=== PATIENT | female | born 1995 | race African-American/Black ===

== ENCOUNTER 2016-10-25 15:11 | Emergency (ER) | payer OTHER ==
[2016-10-25 15:28] VITALS: BP 121/75; PULSE 102; TEMP 98; BMI 23.1
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
[2016-10-25] MEDS ORDERED: ACETAMINOPHEN 325 MG TABLET (FP) ONE (17:34)
[2016-10-25] MEDS: ACETAMINOPHEN 325 MG TABLET (FP) PO ONE (17:35)
== END 2016-10-25 17:38 | disposition home or self-care (01) ==
LOC: JERFT 15:11
DX: M54.6 Pain in thoracic spine (principal); V43.62XA Car passenger injured in collision with other type car in traffic accident, initial encounter; Y92.414 Local residential or business street as the place of occurrence of the external cause; Y93.89 Activity, other specified; Y99.8 Other external cause status
CPT/HCPCS: 84703; 99281-25

== ENCOUNTER 2017-06-12 05:15 | Inpatient (IN) | payer OTHER ==
[2017-06-12 06:36] VITALS: BMI 24.9
[2017-06-12] MEDS ORDERED: DEXTROSE 5%-LACTATED RINGERS 1,000 ML IV SCH ×2 (06:45→09:15)
[2017-06-12] MEDS ORDERED: AMPICILLIN - 2 GM/100 ML BAG IVPB ONE (07:00)
[2017-06-12] MEDS: AMPICILLIN - 1 GM/100 ML BAG IVPB SCH ×4 (07:39→14:40)
[2017-06-12 08:42] LABS: BASOPHIL 0.4 % (0-2.0); EOSINOPHIL 0.7 % (0-4.5); MCH 29.8 pg (25.7-33.7); MCHC 34.1 g/dl (32.0-36.0); MEAN CELL VOLUME 87.5 fl (80-96); MEAN PLT VOLUME 7.2 fl (7.5-11.1); NEUTROPHILS 69.4 % (42.8-82.8); PLATELET COUNT 250 K/MM3 (134-434); RDW 12.8 % (11.6-15.6); WHITE BLOOD COUNT 5.3 K/mm3 (4.0-10.0)
[2017-06-12 08:58] LABS: INR 0.99 (0.82-1.09); PROTHROMBIN TIME (PATIENT) 11.2 SEC (9.98-11.88)
[2017-06-12 09:00] LABS: ACTIVATED PTT 23.7 SECONDS (26.9-34.4)
--- NOTE | 2017-06-12 09:15 | HP ---
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: Alzheimer's, CVA, Dementia, Migraine, Multiple Sclerosis, Peripheral Neuropathy, Parkinson's, Seizure, Syncope, TIA, Vertigo, Other Cardiovascular: No: AFIB, Aneurysm, Aortic Insufficiency, Aortic Stenosis, CAD, CHF, Deep Vein Thrombosis, HTN, Hyperlipdemia, ME, Mitral Insufficiency, Mitral Stenosis, Murmur, Pulmonary Hypertension, Other Pulmonary: No: Asthma, Bronchitis, Cancer, COPD, O2 Dependent, Pneumonia, Previously Intubated, Pulmonary Embolus, Pulmonary Fibrosis, Sleep Apnea, Other Gastrointestinal: No: Ascites, Cancer, Constipation, Crohn's Disease, Diverticulitis, Diverticulosis, Esophageal Varices, Gastritis, GERD, GI Bleed, Hemorrhoids, Hiatal Hernia, Inflamatory Bowel Disease, Irritable Bowel Disease, Pancreatitis, Peptic Ulcer Disease, Ulcerative Colitis, Other Hepatobiliary: No: Cirrhosis, Cholelithiasis, Cholecystitis, Choledocholithiasis , Hepatitis A, Hepatitis B, Hepatitis C, Other Renal/: No: Renal Failure, Renal Inusuff, BPH, Cancer, Hematuria, Hemodialysis , Neurogenic Bladder, Renal Calculi, UTI, Other Reproductive: No: Ectopic , Endometriosis, Fibroids, PID, Polycystic Ovary Syndrome, Postmenopausal, Other ...: 2 ...Para: 1 ...Term: 1 ...EDC by Sono: 06/25/17 Heme/Onc: Yes: Anemia Infectious Disease: No: AIDS, C-Diff, Herpes Zoster, HIV, MRSA, STD's, Tuberculosis, VREF, Other Psych: No: Addictions, Anxiety, Bipolar, Depression, Panic, Psychosis, Schizophrenia, Other Musculoskeletal: No: Bursitis, Chronic low back pain, Hemiparesis, Hemiplegia, Osteoarthritis, Paraplegia, Other Rheumatology: No: Fibromyalgia, Gout, Lupus, Rheumatoid Arthritis, Sarcoidosis, Vasculitis, Other ENT: No: Allergic Rhinitis, Sinusitis, Other Endocrine: No: Lj's Disease, [place]'s Disease, Diabetes Insipidus, Diabetes Mellitus, Hyperparathyroidism, Hyperthyroidism, Hypothyroidism, Osteopenia, SIADH, Other Dermatology: No: Basal Cell, Cellulitis, Eczema, Melanoma, Psoriasis, Squamous Cell, Other - Past Surgical History Past Surgical History: Yes: None Hx Myomectomy: No Hx Transabdominal Cerclage: No - Smoking History Smoking history: Never smoked Have you smoked in the past 12 months: No Aproximately how many cigarettes per day: 0 - Alcohol/Substance Use Hx Alcohol Use: No History of Substance Use: reports: None - Social History Usual Living Arrangement: Yes: With Child ADL: Independent History of Recent Travel: No Home Medications - Allergies Allergies/Adverse Reactions: Allergies Allergy/AdvReac Type Severity Reaction Status Date / Time No Known Allergies Allergy Verified 05/05/17 16:01 - Home Medications Home Medications: Ambulatory Orders Vit/Iron Fumarate/FA [ Tablet] 1 tab PO DAILY 05/05/17 Family Disease History - Family Disease History Family History: Denies Review of Systems - Review of Systems Constitutional: reports: No Symptoms, Other (occasional irreg ctx's) Eyes: reports: No Symptoms HENT: reports: No Symptoms Neck: reports: No Symptoms Cardiovascular: reports: No Symptoms Respiratory: reports: No Symptoms Gastrointestinal: reports: No Symptoms Genitourinary: reports: Other (leaking clear fluids) Breasts: reports: No Symptoms Reported Musculoskeletal: reports: No Symptoms Integumentary: reports: No Symptoms Neurological: reports: No Symptoms Endocrine: reports: No Symptoms Hematology/Lymphatic: reports: No Symptoms Psychiatric: reports: No Symptoms Pain Intensity: 2 Physical Exam - Maternity Vital Signs: Vital Signs Temperature 98.9 F 06/12/17 08:00 Pulse Rate 86 06/12/17 08:00 Respiratory Rate 20 06/12/17 08:00 Blood Pressure 100/64 06/12/17 08:00 O2 Sat by Pulse Oximetry (%) Constitutional: Yes: Well Nourished, No Distress, Calm Eyes: Yes: WNL, Conjunctiva Clear, EOM Intact HENT: Yes: WNL, Atraumatic, Normocephalic Neck: Yes: WNL, Supple, Trachea Midline Cardiovascular: Yes: WNL, Regular Rate and Rhythm Lungs: Clear to auscultation, Normal air movement - Abdominal Exam/OB Fundal Height: 38 Number of Fetuses: Single Presentation: Vertex Contractions: Yes Regularity: Irregular Intensity: Mild Monitor Mode: External Heart Rate (range): 140 Heart Rate Location: Midline Category: I Accelerations: Non-Uniform Decelerations: None - Vaginal Exam/OB Vaginal Bleediing: No Speculum Exam: No Dilatation (cm): 1 Effacement (%): 20 Amniotic Membrane Status: Leaking Nitrazine Test: Positive Amniotic Fluid: Yes: Clear Presentation: Vertex/Position Station: -4 (Adequate gynecoid pelvimetry) - Physical Exam Musculoskeletal: Yes: WNL Extremities: Yes: WNL Edema: No Integumentary: Yes: WNL Deep Tendon Reflex Grade: Normal +2 ...Motor Strength: WNL Psychiatric: Yes: WNL, Alert, Oriented - Labs Lab Results: CBC, BMP 06/12/17 08:06 Hemorrhage Risk Assessment - Risk Factors Medium Risk Factors: Yes: None High Risk Factors: Yes: None Risk Score: 1 Risk Level: Medium Risk Imaging - Results Ultrasound: Report Reviewed Assessment/Plan 22yo P1 with at EGA 38w2d admitted with SROM in early labor. Pt with Category I tracing. Labor is in latent phase. Adequate gynecoid pelvimetry. EFW ~3200gm on exam. Pt with prior h/o shoulder dystocia. I had a long discussion with the pt re: risks of shoulder dystocia and possible /maternal risks of injury. I explained that it is impossible to predict and the only way to attempt to avoid the dystocia is a delivery. The pt declined C/S. I explained the risks of neurologic trauma, , maternal hemorrhage, emergency C/S, maternal trauma, etc. The pt verbalized understanding.
[2017-06-12 09:23] LABS: ALBUMIN 2.5 g/dl (3.4-5.0); ANION GAP 8 (8-16); CALCIUM 8.1 mg/dL (8.5-10.1); CO2 24 mmol/L (21-32); CREATININE 0.6 mg/dL (0.55-1.02); GLUCOSE,RANDOM 210 mg/dL (74-106); SGOT/AST 14 U/L (15-37); SGPT/ALT 13 U/L (12-78)
[2017-06-12 09:24] LABS: ALK PHOS 170 U/L (45-117); BILIRUBIN,TOTAL 0.5 mg/dL (0.2-1.0)
[2017-06-12] MEDS ORDERED: OXYTOCIN 15 UNITS/ LR 250 ML 15 UNIT/250 ML INFUS.BAG IVPB SCH (09:30)
[2017-06-12 09:34] LABS: HIV 1 & 2 AB NEGATIVE; HIV 1 AGp24 NEGATIVE
[2017-06-12] MEDS ORDERED: TUBERCULIN PPD 5 TU/0.1ML SYRINGE (IN PATIENT USE ONLY) ID ONE (10:00)
[2017-06-12] MEDS ORDERED: PROMETHAZINE HCL 25 MG/1 ML VIAL IVPUSH ONE (12:00)
[2017-06-12] MEDS ORDERED: BUTORPHANOL TARTRATE 1 MG/ML VIAL IVPUSH ONE (12:00)
--- NOTE | 2017-06-12 14:36 | PN ---
Ante-Partal Exam - Subjective Subjective: Patient reports pain with contractions Vital Signs: Vital Signs Temperature 98.5 F 06/12/17 14:00 Pulse Rate 89 06/12/17 14:00 Respiratory Rate 20 06/12/17 14:00 Blood Pressure 104/55 06/12/17 14:00 O2 Sat by Pulse Oximetry (%) Bleeding: No Headache: No Visual changes: No Right upper quadrant pain: No - Contractions Contractions: Yes Regularity: Regular Intensity: Mod/Strong Monitor Mode: External - Exam during Labor Heart Rate: 130 Variability: Moderate Monitor Accelerations: Present Monitor Decelerations: Variable Exam: Vaginal Dilatation (cm): 8 Effacement (%): 100 Presentation: Vertex Station: 0 - Intrapartum Hemorrhage Risk Medium Risk Factors: None High Risk Factors: None Risk Score: 0 Risk Level: Low Risk - Assessment/Plan Assessment/Plan: 22 yo PROM, on pitocin, active labor, prior hx/o shoulder dystocia 1. Good cervical change, on pitocin per protocol 2. occasional variable deceleration, fetus does not require intervention 3. s/p stadol / phenergan, does not desire epidural 4. Will proceed with expectant management
--- NOTE | 2017-06-12 15:24 | PN ---
Delivery - Delivery Vaginal Delivery: No Problems Type of Anesthesia: Local Episiotomy/Laceration: Periurethral Extnsion/lac, 1st degree EBL (cc): 300 Delivery, Single - Stages of Labor Date 1st Stage Initiatied: 06/12/17 Time 1st Stage Initiated: 03:00 Date 2nd Stage Initiated: 06/12/17 Time 2nd Stage Initiated: 02:50 Date of Delivery: 06/12/17 Time of Delivery: 15:01 Date Placenta Delivered: 06/12/17 Time Placenta Delivered: 15:05 Placenta: Yes: Spontaneous - Condition of Infant Gender: Male Position: Left, OA Total Hours ROM (Hrs/Mins): 3 hours 5 minutes - 1 Minute Total Score: 9 5 Minutes Total Score: 9 - Feeding Plan Initial Plan: Elected not to breastfeed exclusively throughout hospitalization Remarks - Remarks Remarks: Patient progressed to fully dilated and at 1501 via delivered a viable male infant in JEAN position, APGARs 9,9. Weight and length unknown at this time. Head delivered spontaneously followed by shoulders and body without difficulty. Infant with spontaneous cry. Nose and mouth was bulb suctioned. Cord was clamped and cut. Perineum and vagina examined, a first degree paraurethreal and a first vaginal laceration was noted and repaired in the usual fashion. Rectal exam revealed no sutures in rectum. Placenta was delivered spontaneously and intact. 20 units of pitocin in 1 L IVF was given. All counts correct x 2. Mother and stable in LDR. EBL 300cc.
[2017-06-12] MEDS ORDERED: BENZOCAINE 20% 57 GM BOTTLE TP PRN (15:27)
[2017-06-12] MEDS ORDERED: BENZOCAINE 28 GM HEMORRHOIDAL OINTMENT TP PRN (15:27)
[2017-06-12] MEDS ORDERED: BISACODYL 10 MG SUPP.RECT RC PRN (15:27)
[2017-06-12] MEDS ORDERED: oxyCODONE HCL 5 MG TABLET PO PRN (15:27)
[2017-06-12] MEDS ORDERED: WITCH HAZEL 50% (TUCKS) 40 PAD/JAR PAD TP PRN (15:27)
[2017-06-12] MEDS ORDERED: METHYLERGONOVINE MALEATE 0.2 MG/1 ML AMP IM PRN (15:27)
[2017-06-12] MEDS ORDERED: OXYTOCIN 20 UNITS in 0.9% NS 20 UNIT/1,000 ML INFUS.BAG IV SCH (15:30)
[2017-06-12] MEDS: IBUPROFEN 600 MG TABLET (FP) PO PRN ×2 (16:34→19:31)
[2017-06-12] MEDS: ACETAMINOPHEN 325 MG TABLET (FP) PO PRN ×2 (16:35→19:32)
[2017-06-12 22:47] LABS: URINE APPEARANCE CLEAR; URINE BILIRUBIN NEGATIVE (NEGATIVE); URINE BLOOD 3+ (NEGATIVE); URINE COLOR LTYELLOW; URINE GLUCOSE (UA) 2+ (NEGATIVE); URINE KETONE TRACE (NEGATIVE); URINE NITRITE NEGATIVE (NEGATIVE); URINE PROTEIN NEGATIVE (NEGATIVE); URINE UROBILINOGEN NEGATIVE mg/dL (0.2-1.0)
[2017-06-12 23:19] LABS: CALCIUM OXALATE CRYSTALS FEW /hpf (NONE SEEN); URINE BACTERIA RARE /hpf (NONE SEEN); URINE MUCUS RARE; URINE RBC 643 /hpf (0-3); URINE WBC 16 /hpf (3-5)
--- NOTE | 2017-06-13 00:54 | PN ---
Post Progress Note - Subjective Subjective: Patient without acute complaints. Reports tolerating oral intake without nausea or vomiting. Ambulating without dizziness. Denies fevers or chills. Pain well controlled with oral pain medication. without difficulty. Passing flatus. Post Day: 1 Type of Delivery: Vital Signs: Vital Signs Temperature 98.7 F 06/12/17 22:00 Pulse Rate 99 H 06/12/17 22:00 Respiratory Rate 20 06/12/17 22:00 Blood Pressure 109/59 06/12/17 22:00 O2 Sat by Pulse Oximetry (%) Breast Exam: Yes: Engorged. No: Cracked Nipples Uterus: Yes: Fundus Firm, Fundus below umbilicus Abdomen/GI: Yes: Abdomen soft, Passing flatus, Tolerating PO. No: Tender Lochia: Yes: Serosa Lochia, amount: Small Extremities: Yes: Calves non-tender. No: Edema Perineum: Yes: Intact Activity: Ambulating - Labs Labs: CBC WBC 5.3 K/mm3 (4.0-10.0) D 06/12/17 08:06 RBC 3.10 M/mm3 (3.60-5.2) L 06/12/17 08:06 Hgb 9.2 GM/dL (10.7-15.3) L D 06/12/17 08:06 Hct 27.1 % (32.4-45.2) L 06/12/17 08:06 MCV 87.5 fl (80-96) 06/12/17 08:06 MCH 29.8 pg (25.7-33.7) 06/12/17 08:06 MCHC 34.1 g/dl (32.0-36.0) 06/12/17 08:06 RDW 12.8 % (11.6-15.6) 06/12/17 08:06 Plt Count 250 K/MM3 (134-434) 06/12/17 08:06 MPV 7.2 fl (7.5-11.1) L 06/12/17 08:06 Neutrophils % 69.4 % (42.8-82.8) 06/12/17 08:06 Lymphocytes % 25.3 % (8-40) D 06/12/17 08:06 Monocytes % 4.2 % (3.8-10.2) 06/12/17 08:06 Eosinophils % 0.7 % (0-4.5) 06/12/17 08:06 Basophils % 0.4 % (0-2.0) 06/12/17 08:06 Assessment/Plan 22 yo PPD # 1 s/p , afebrile, vital signs stable, doing well 1. Continue routine care. 2. Follow up AM CBC 3. Rh positive status, no rhogam indicated. 4. Encourage ambulation 5. Continue oral pain medication 6. Anticipate discharge home day #2
[2017-06-13 08:47] LABS: BASOPHIL 0.5 % (0-2.0); EOSINOPHIL 0.9 % (0-4.5); MCH 29.6 pg (25.7-33.7); MCHC 33.4 g/dl (32.0-36.0); MEAN CELL VOLUME 88.7 fl (80-96); MEAN PLT VOLUME 7.1 fl (7.5-11.1); NEUTROPHILS 62.1 % (42.8-82.8); PLATELET COUNT 239 K/MM3 (134-434); RDW 12.8 % (11.6-15.6); WHITE BLOOD COUNT 8.7 K/mm3 (4.0-10.0)
[2017-06-13] MEDS: PRENATAL VITAMINS W/ FOLIC ACID TABLET (FP) PO SCH (09:19)
[2017-06-13] MEDS: ACETAMINOPHEN 325 MG TABLET (FP) PO PRN (09:19)
[2017-06-13] MEDS: IBUPROFEN 600 MG TABLET (FP) PO PRN (09:19)
[2017-06-13] MEDS ORDERED: DIPHTH,PERTUSS(ACELL),TET 0.5 ML DISP.SYRIN IM ONE (10:00)
[2017-06-13 12:56] LABS: URINE LEUK ESTERASE 2+ (NEGATIVE)
[2017-06-13] MEDS ORDERED: SENNOSIDES/DOCUSATE COMBO (SENNA PLUS) TABLET (UD) PO PRN (22:00)
[2017-06-14] MEDS: ACETAMINOPHEN 325 MG TABLET (FP) PO PRN (05:08)
[2017-06-14] MEDS: IBUPROFEN 600 MG TABLET (FP) PO PRN (05:09)
[2017-06-14 07:58] VITALS: BP 109/66; PULSE 73; TEMP 99
--- NOTE | 2017-06-14 08:04 | DS ---
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 Vital Signs: Vital Signs Temperature 99 F 06/14/17 07:58 Pulse Rate 73 06/14/17 07:58 Respiratory Rate 20 06/14/17 07:58 Blood Pressure 109/66 06/14/17 07:58 O2 Sat by Pulse Oximetry (%) Constitutional: Yes: Well Nourished, No Distress, Calm Eyes: Yes: WNL, Conjunctiva Clear, EOM Intact HENT: Yes: WNL, Atraumatic, Normocephalic Neck: Yes: WNL, Supple, Trachea Midline Cardiovascular: Yes: WNL, Regular Rate and Rhythm Respiratory: Yes: WNL, Regular, CTA Bilaterally Gastrointestinal: Yes: WNL ...Rectal Exam: Yes: WNL Renal/: Yes: WNL ....Post : Yes: Uterus firm, Uterus non-tender, Slight lochia rubra Breast(s): Yes: WNL Musculoskeletal: Yes: WNL Extremities: Yes: WNL Edema: Yes Edema: LLE: Trace, RLE: Trace Integumentary: Yes: WNL Neurological: Yes: WNL, Alert, Oriented ...Motor Strength: WNL Psychiatric: Yes: WNL, Alert, Oriented Labs: CBC, BMP 06/13/17 07:35 06/12/17 08:06 Delivery - Delivery Vaginal Delivery: Spontaneous Type of Anesthesia: Local Episiotomy/Laceration: Periurethral Extnsion/lac, 1st degree EBL (cc): 300 Delivery, Single - Stages of Labor Date 1st Stage Initiatied: 06/12/17 Time 1st Stage Initiated: 03:00 Date 2nd Stage Initiated: 06/12/17 Time 2nd Stage Initiated: 02:50 Date of Delivery: 06/12/17 Time of Delivery: 15:01 Time Placenta Delivered: 15:05 Placenta: Yes: Spontaneous - 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: Yes Gender: Male Weight: 6 lb 10 oz Position: Left, OA Total Hours ROM (Hrs/Mins): 3 hours 5 minutes - 1 Minute Total Score: 9 5 Minutes Total Score: 9 - [place] Feeding Plan Initial Plan: Elected not to breastfeed exclusively throughout hospitalization Discharge Summary Reason For Visit: LABOR Condition: Good - Instructions Diet, Activity, Other Instructions: regular diet, follow up office 4 weeks Referrals: Champ Alcocer MD [Staff Physician] - Disposition: HOME - Home Medications Comprehensive Discharge Medication List: Ambulatory Orders Vit/Iron Fumarate/FA [ Tablet] 1 tab PO DAILY 05/05/17 Ibuprofen [Motrin -] 600 mg PO QID #28 tablet 06/13/17
[2017-06-14] MEDS: PRENATAL VITAMINS W/ FOLIC ACID TABLET (FP) PO SCH (09:53)
== END 2017-06-14 13:40 | disposition home or self-care (01) | DRG 560 ==
LOC: JLDR 05:15 → J3W 16:38
PROVIDERS: ADMIT Obstetrics & Gynecology; ATTEND Obstetrics & Gynecology
PROC: 10E0XZZ Delivery of Products of Conception, External Approach (ICD-10-PCS; principal; 2017-06-12)
PROC: 0HQ9XZZ Repair Perineum Skin, External Approach (ICD-10-PCS; 2017-06-12)
DX: O76 Abnormality in fetal heart rate and rhythm complicating labor and delivery (principal); O99.824 Streptococcus B carrier state complicating childbirth; O70.0 First degree perineal laceration during delivery; O42.92 Full-term premature rupture of membranes, unspecified as to length of time between rupture and onset of labor; Z3A.38 38 weeks gestation of pregnancy; Z37.0 Single live birth
CPT/HCPCS: 36415; 59409; 80053; 81003; 81015; 85025; 85610; 85730; 86593; 86762; 86850; 86900; 86901; 87340; 87389; 90715

== ENCOUNTER 2018-06-27 10:07 | Emergency (ER) | payer OTHER ==
[2018-06-27 10:28] VITALS: BP 104/70; PULSE 86; TEMP 98; BMI 25.7
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
== END 2018-06-27 12:19 | disposition home or self-care (01) ==
LOC: JERFT 10:07
DX: S80.12XA Contusion of left lower leg, initial encounter (principal); W20.8XXA Other cause of strike by thrown, projected or falling object, initial encounter; Y93.89 Activity, other specified; Y92.481 Parking lot as the place of occurrence of the external cause
CPT/HCPCS: 73590-TC-LT-FY; 84703; 99281-25

== ENCOUNTER 2019-01-08 18:48 | Emergency (ER) | payer OTHER ==
[2019-01-08 19:06] VITALS: BP 121/76; PULSE 79; TEMP 98.1; BMI 27.4
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
[2019-01-08] MEDS ORDERED: BACITRACIN 0.9 GM PACKET TP ONE (20:10)
[2019-01-08] MEDS ORDERED: DIPHTH,PERTUSS(ACELL),TET 0.5 ML DISP.SYRIN IM ONE ×2 (20:10→20:14)
[2019-01-08] MEDS ORDERED: BACITRACIN 0.9 GM PACKET ONE (20:14)
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
--- NOTE | 2019-01-09 11:52 | EKG ---
Test Reason : Blood Pressure : / mmHG Vent. Rate : 079 BPM Atrial Rate : 079 BPM P-R Int : 156 ms QRS Dur : 078 ms QT Int : 360 ms P-R-T Axes : 064 043 049 degrees QTc Int : 412 ms NORMAL SINUS RHYTHM NORMAL ECG NO PREVIOUS ECGS AVAILABLE Confirmed by KIMMIE MORENO MD ([id number]) on 01/09/2019 11:52:16 AM Referred By: Confirmed By:KIMMIE MORENO MD
== END 2019-01-08 21:03 | disposition home or self-care (01) ==
LOC: JER 18:48
PROC: 3E0234Z Introduction of Serum, Toxoid and Vaccine into Muscle, Percutaneous Approach (ICD-10-PCS; principal; 2019-01-08)
DX: S20.219A Contusion of unspecified front wall of thorax, initial encounter (principal); S20.319A Abrasion of unspecified front wall of thorax, initial encounter; Y04.0XXA Assault by unarmed brawl or fight, initial encounter; Y93.89 Activity, other specified; Y92.89 Other specified places as the place of occurrence of the external cause; Y99.8 Other external cause status; Y07.9 Unspecified perpetrator of maltreatment and neglect
CPT/HCPCS: 71046-TC-FY; 90715; 93005; 93010; 99283-25

== ENCOUNTER 2019-09-17 12:33 | Day surgery (SDC) | payer OTHER ==
[2019-08-18 16:15] VITALS: BMI 27.4
[2019-09-17] MEDS ORDERED: LIDOCAINE HCL/PF 2% SDV 5ML VIAL ONE (13:55)
[2019-09-17] MEDS ORDERED: MIDAZOLAM HCL 2 MG/2 ML SINGLE DOSE VIAL ONE ×2 (13:55)
[2019-09-17] MEDS ORDERED: PROPOFOL 20 ML ONE ×2 (13:55)
[2019-09-17] MEDS ORDERED: KETOROLAC TROMETHAMINE 30 MG/1 ML VIAL ONE (13:55)
[2019-09-17] MEDS ORDERED: DEXAMETHASONE SOD PHOSPHATE 4 MG/1 ML VIAL ONE (13:55)
[2019-09-17] MEDS ORDERED: ONDANSETRON 4 MG/2 ML VIAL IVPUSH PRN (14:07)
[2019-09-17] MEDS ORDERED: oxyCODONE HCL 5 MG TABLET PO PRN (14:07)
[2019-09-17] MEDS ORDERED: LACTATED RINGERS SOLUTION 1,000 ML IV SCH (14:15)
--- NOTE | 2019-09-17 14:28 | HP ---
History & Physical Update - History History: No Change - Physical Physical: No Change - Assessment Assessment: No Change - Plan Plan: No Change (H&P reviwed , no manisha)
[2019-09-17 16:11] VITALS: TEMP 97.9
[2019-09-17 19:18] VITALS: BP 126/73; PULSE 80
--- NOTE | 2019-09-17 20:19 | OP ---
Operative Note - Note: Operative Date: 09/17/19 Pre-Operative Diagnosis: menometrorrhagia , EM polyp Operation: hysteroscopy D&C . polypectomy Findings: EM polyp, irregular EM Surgeon: Champ Alcocer Anesthesia: General Estimated Blood Loss (mls): 10 Drains & Tubes with Location: none Operative Report Dictated: Yes
--- NOTE | 2019-09-17 23:07 | OP ---
DATE OF OPERATION: 09/17/2019 PREOPERATIVE DIAGNOSIS: Menorrhagia, endometrial polyp. POSTOPERATIVE DIAGNOSIS: Menorrhagia, endometrial polyp. PROCEDURE: Hysteroscopy, dilation and curettage polypectomy. SURGEON: Champ Alcocer MD. ANESTHESIA: General. ESTIMATED BLOOD LOSS: 10 mL. FINDINGS: An endometrial polyp posterior wall of the uterus. OPERATION: Patient was taken to operating room, and under adequate general anesthesia, abdomen, perineum, vagina were prepped and draped. Examination under anesthesia revealed external genitalia to be normal. Vagina was normal, cervix was no clean no lesion. Uterus was normal size, anteverted. Adnexa, no masses were palpable. Then, with a weighted speculum in the vagina, anterior lip of the cervix was grasped with a single-toothed tenaculum. Uterine cavity was sounded to 8 cm. Then hysteroscope was introduced into the uterine cavity, and the cervical canal appeared to be normal. There was a polyp in the posterior part of the lower part of the uterus, and the endometrium appeared to be irregular. In the lower uterine segment it was thick, and upper portion was atrophic. Both cornual regions were identified, and tubal ostium was noted. Then the polyp was removed, and endometrial gently was curetted. Patient tolerated procedure well, left the OR in good condition. CHAMP ALCOCER M.D. [id number]
--- NOTE | 2019-09-21 11:05 | OP ---
DATE OF OPERATION: 09/17/2019 PREOPERATIVE DIAGNOSIS: Menometrorrhagia and endometrial polyp. POSTOPERATIVE DIAGNOSIS: Menometrorrhagia and endometrial polyp. PROCEDURE: Hysteroscopy, dilation and curettage, polypectomy. SURGEON: Champ Alcocer MD ANESTHESIA: General. ESTIMATED BLOOD LOSS: 20 mL. DESCRIPTION OF PROCEDURE: Patient was taken to the operating room. Under adequate general anesthesia in dorsal lithotomy position, abdomen, perineum, vagina were prepped and draped. Examination under anesthesia revealed external genitalia to be normal. Vagina was normal. There was small amount of dark bleeding from the os. Os was closed. Uterus was normal size. Adnexa, no masses were palpable. Then with a weighted speculum in the vagina, anterior lip of the cervix was grasped with a single-tooth tenaculum, and cervix was slightly dilated with Hegar dilator. Hysteroscope was introduced into the uterine cavity, and the cervical canal appeared to be normal. Endometrium was irregular and prominent, and there was a polyp in the lower uterine segment. No other abnormality was noted. Both tubal ostia were seen. No submucosal myoma. Then lower uterine segment polyp was removed and then cervix was gradually dilated with Hegar dilator and then endometrium was curetted. Patient tolerated procedure well. Left the OR in good condition. Katharine [id number]
--- NOTE | 2019-09-21 16:33 | PATH ---
Surgical Pathology Report Patient Name: GLADYS ALEXANDER [facility]. Rec. #: [id number] /Age/Gender: 1995 (Age: 24) / F Account: [id number] Location: [facility] SURGICAL Taken: 09/17/2019 Received: 09/18/2019 Reported: 09/21/2019 Physicians: Champ Alcocer M.D. Specimen(s) Received A: ENDOMETRIAL CURETTINGS B: ENDOMETRIAL POLYP Clinical History Irregular bleeding Final Diagnosis A. ENDOMETRIAL CURETTINGS, DILATION AND CURETTAGE: FRAGMENTS OF ENDOMETRIAL POLYP, PROLIFERATIVE ENDOMETRIUM WITH PATCHY AREAS OF CHRONIC ENDOMETRITIS, ENDOCERVICAL MUCOSA, AND SCANT CERVICAL SQUAMOUS EPITHELIUM. B. ENDOMETRIAL POLYP, DILATION AND CURETTAGE: FRAGMENTS OF ENDOMETRIAL POLYP, PROLIFERATIVE ENDOMETRIUM, ENDOCERVICAL MUCOSA, AND SCANT CERVICAL SQUAMOUS EPITHELIUM. Electronically Signed Karine Sauer M.D. Gross Description A. Received in formalin labeled "endometrial curettings," is a 4.0 x 3.4 x 0.4 cm aggregate of lane-brown soft tissue fragments. The formalin is filtered and the specimen is entirely submitted in 2 cassettes. B. Received in formalin labeled "endometrial polyp," is a 2.4 x 1.8 x 0.[address], irregular to polypoid portions of soft tissue. The formalin is filtered and the specimen is entirely submitted in one cassette. 09/18/2019 saudi09/18/2019
== END 2019-09-17 18:00 | disposition home or self-care (01) ==
LOC: JASU-SURG 12:33
PROVIDERS: ATTEND Obstetrics & Gynecology
PROC: 0UB98ZZ Excision of Uterus, Via Natural or Artificial Opening Endoscopic (ICD-10-PCS; principal; 2019-09-17 15:00)
PROC: 0UDB8ZZ Extraction of Endometrium, Via Natural or Artificial Opening Endoscopic (ICD-10-PCS; 2019-09-17 15:00)
DX: J33.8 Other polyp of sinus (principal); N92.1 Excessive and frequent menstruation with irregular cycle
CPT/HCPCS: 88305-TC; 94760

== ENCOUNTER 2022-01-08 11:57 | Emergency (ER) | payer OTHER ==
[2022-01-08 12:06] VITALS: BMI 25.7
[2022-01-08] MEDS ORDERED: ONDANSETRON *ODT* 4 MG TABLET SL ONE (12:52)
[2022-01-08] MEDS ORDERED: ONDANSETRON *ODT* 4 MG TABLET ONE (12:53)
[2022-01-08 15:13] VITALS: BP 110/70; PULSE 80; TEMP 98.2
== END 2022-01-08 15:37 | disposition home or self-care (01) ==
LOC: FER 11:57
DX: O21.9 Vomiting of pregnancy, unspecified (principal); O26.891 Other specified pregnancy related conditions, first trimester; Z3A.08 8 weeks gestation of pregnancy
CPT/HCPCS: 36415; 76817-TC; 81003; 84702; 99284-25; Q0162

== ENCOUNTER 2022-08-13 07:05 | Inpatient (IN) | payer OTHER ==
[2022-08-13 08:05] VITALS: BMI 26.6
[2022-08-13 09:29] LABS: BASO % 0.4 % (0-2.0); EOS % 0.8 % (0-4.5); HEMATOCRIT 29.1 % (32.4-45.2); HEMOGLOBIN 9.8 GM/dL (10.7-15.3); LYMPH % 28.8 % (8-40); MCH 30.4 pg (25.7-33.7); MCHC 33.8 g/dl (32.0-36.0); MEAN CELL VOLUME 89.9 fl (80-96); MEAN PLT VOLUME 7.5 fl (7.5-11.1); MONO % 9.8 % (3.8-10.2); NEUT % 60.2 % (42.8-82.8); PLATELET COUNT 253 10^3/uL (134-434); RBC 3.23 M/mm3 (3.60-5.2); RDW 14.6 % (11.6-15.6)
[2022-08-13 09:41] LABS: INR 0.98 (0.83-1.09); PROTHROMBIN TIME (PATIENT) 11.3 SEC (9.7-13.0)
[2022-08-13 09:45] LABS: BLOOD UREA NITROGEN 7.4 mg/dL (7-18); CALCIUM 8.8 mg/dL (8.5-10.1)
[2022-08-13 09:49] LABS: CREATININE 0.5 mg/dL (0.55-1.3)
[2022-08-13] MEDS ORDERED: OXYTOCIN 30 UNITS in 0.9% NS 30 UNIT/500 ML INFUS.BAG IVPB SCH (10:00)
[2022-08-13] MEDS ORDERED: ELECTROLYTE-148 SOLN 1,000 ML IV SCH (10:00)
[2022-08-13] MEDS ORDERED: OXYTOCIN 30 UNITS in 0.9% NS 30 UNIT/500 ML INFUS.BAG IVPB ONE (10:06)
[2022-08-13] MEDS ORDERED: AMPICILLIN SODIUM 2 GM VIAL ONE (10:31)
[2022-08-13] MEDS ORDERED: AMPICILLIN - 2 GM in SODIUM CHLORIDE 100 ML IVPB ONE (10:38)
[2022-08-13] MEDS ORDERED: AMPICILLIN SODIUM 1 GM VIAL ONE (14:09)
[2022-08-13] MEDS: AMPICILLIN - 1 GM in SODIUM CHLORIDE 100 ML IVPB SCH ×2 (14:30→19:47)
[2022-08-13] MEDS ORDERED: PROMETHAZINE HCL 25 MG/1 ML VIAL IVPB ONE (16:45)
[2022-08-13] MEDS ORDERED: BUTORPHANOL TARTRATE 1 MG/ML VIAL ONE (16:45)
[2022-08-13] MEDS ORDERED: BUTORPHANOL TARTRATE 1 MG/ML VIAL IVPB ONE (16:45)
[2022-08-13] MEDS ORDERED: PROMETHAZINE HCL 25 MG/1 ML VIAL ONE (16:46)
[2022-08-13] MEDS ORDERED: OXYTOCIN 20 UNITS in 0.9% NS 20 UNIT/1,000 ML INFUS.BAG IV ONE (17:36)
[2022-08-13] MEDS ORDERED: ACETAMINOPHEN 325 MG TABLET (FP) PO PRN (19:06)
[2022-08-13] MEDS ORDERED: BENZOCAINE 20% 57 GM BOTTLE TP PRN (19:06)
[2022-08-13] MEDS ORDERED: oxyCODONE HCL 5 MG TABLET PO PRN (19:06)
[2022-08-13] MEDS ORDERED: BISACODYL 10 MG SUPP.RECT RC PRN (19:06)
[2022-08-13] MEDS ORDERED: WITCH HAZEL 50% (TUCKS) 40 PAD/JAR PAD TP PRN (19:06)
[2022-08-13] MEDS ORDERED: BENZOCAINE 28 GM HEMORRHOIDAL OINTMENT TP PRN (19:06)
[2022-08-13] MEDS ORDERED: METHYLERGONOVINE MALEATE 0.2 MG/1 ML AMP IM PRN (19:06)
[2022-08-13] MEDS ORDERED: OXYTOCIN 20 UNITS in 0.9% NS 20 UNIT/1,000 ML INFUS.BAG IV SCH (19:15)
[2022-08-13] MEDS: IBUPROFEN 600 MG TABLET (FP) PO PRN (21:13)
[2022-08-14] MEDS: IBUPROFEN 600 MG TABLET (FP) PO PRN ×2 (01:34→20:17)
[2022-08-14 09:08] LABS: BASO % 0.3 % (0-2.0); EOS % 0.7 % (0-4.5); HEMATOCRIT 27.6 % (32.4-45.2); HEMOGLOBIN 9.4 GM/dL (10.7-15.3); LYMPH % 23.1 % (8-40); MCH 30.6 pg (25.7-33.7); MCHC 33.9 g/dl (32.0-36.0); MEAN CELL VOLUME 90.3 fl (80-96); MEAN PLT VOLUME 7.4 fl (7.5-11.1); MONO % 9.6 % (3.8-10.2); NEUT % 66.3 % (42.8-82.8); PLATELET COUNT 236 10^3/uL (134-434); RBC 3.06 M/mm3 (3.60-5.2); RDW 14.9 % (11.6-15.6); WHITE BLOOD COUNT 8.1 K/mm3 (4.0-10.0)
[2022-08-14] MEDS: PRENATAL VITAMINS W/ FOLIC ACID TABLET (FP) PO SCH (09:48)
[2022-08-14] MEDS ORDERED: SENNOSIDES/DOCUSATE COMBO (SENNA PLUS) TABLET (UD) PO PRN (22:00)
[2022-08-15] MEDS: PRENATAL VITAMINS W/ FOLIC ACID TABLET (FP) PO SCH (09:17)
[2022-08-15 11:06] VITALS: BP 114/72; PULSE 88; RESP 20; TEMP 98
== END 2022-08-15 13:50 | disposition home or self-care (01) | DRG 560 ==
LOC: JLDR 07:05 → J3W 20:54
PROVIDERS: ADMIT Obstetrics & Gynecology; ATTEND Obstetrics & Gynecology
PROC: 10E0XZZ Delivery of Products of Conception, External Approach (ICD-10-PCS; principal; 2022-08-13)
PROC: 3E033VJ Introduction of Other Hormone into Peripheral Vein, Percutaneous Approach (ICD-10-PCS; 2022-08-13)
PROC: 10907ZC Drainage of Amniotic Fluid, Therapeutic from Products of Conception, Via Natural or Artificial Opening (ICD-10-PCS; 2022-08-13)
DX: O80 Encounter for full-term uncomplicated delivery (principal); Z3A.39 39 weeks gestation of pregnancy; Z37.0 Single live birth
CPT/HCPCS: 36415; 59409; 80048; 85025; 85610; 85730; 86780; 86850; 86900; 86901; C9803-CS; U0003; U0005

== ENCOUNTER 2023-01-08 18:05 | Emergency (ER) | payer OTHER ==
[2023-01-08 18:32] VITALS: BP 110/75; PULSE 88; RESP 18; TEMP 99.1; BMI 25.7
[2023-01-08] MEDS ORDERED: DIPHTH,PERTUSS(ACELL),TET 0.5 ML DISP.SYRIN IM ONE ×2 (19:19→19:25)
[2023-01-08] MEDS ORDERED: ACETAMINOPHEN 500 MG TABLET (FP) PO ONE (19:19)
[2023-01-08] MEDS ORDERED: AMOX TR/POT CLAV 875MG/125MG TABLETS (FP) PO ONE (19:20)
[2023-01-08] MEDS ORDERED: ACETAMINOPHEN 325 MG TABLET (FP) ONE (19:25)
[2023-01-08] MEDS ORDERED: AMOX TR/POT CLAV 875MG/125MG TABLETS (FP) ONE (19:25)
[2023-01-08 20:37] LABS: EPI CELLS 27 /uL (0-25.1); HYALINE CASTS 0 /uL (0-3.1); URINE APPEARANCE CLEAR; URINE BACTERIA 1155 /uL (0-1359); URINE BILIRUBIN NEGATIVE (NEGATIVE); URINE COLOR YELLOW; URINE GLUCOSE (UA) NEGATIVE (NEGATIVE); URINE KETONE NEGATIVE (NEGATIVE); URINE LEUK ESTERASE TRACE (NEGATIVE); URINE NITRITE NEGATIVE (NEGATIVE); URINE PROTEIN NEGATIVE (NEGATIVE); URINE RBC 6 /uL (0-23.9); URINE WBC 40 /uL (0-25.8)
[2023-01-08 20:55] LABS: HCG,QUALITATIVE URINE Positive
== END 2023-01-08 21:33 | disposition home or self-care (01) ==
LOC: JER 18:05
PROC: 3E0234Z Introduction of Serum, Toxoid and Vaccine into Muscle, Percutaneous Approach (ICD-10-PCS; principal; 2023-01-08)
DX: O9A.211 Injury, poisoning and certain other consequences of external causes complicating pregnancy, first trimester (principal); S41.152A Open bite of left upper arm, initial encounter; W50.3XXA Accidental bite by another person, initial encounter; Z3A.00 Weeks of gestation of pregnancy not specified
CPT/HCPCS: 73030-TC-LT-FY; 73060-TC-LT-FY; 81003; 84703; 87086; 90471; 90715; 99284-25

== ENCOUNTER 2024-12-29 12:24 | Emergency (ER) | payer OTHER ==
[2024-12-29 12:41] VITALS: BP 108/68; PULSE 72; RESP 18; TEMP 98.6; BMI 32.5
[2024-12-29] MEDS ORDERED: ONDANSETRON 4 MG/2 ML VIAL ONE (13:32)
[2024-12-29] MEDS: SODIUM CHLORIDE 0.9% 500 ML INFUS.BAG IV ONE (13:40)
[2024-12-29] MEDS: ONDANSETRON 4 MG/2 ML VIAL IVPUSH ONE (13:42)
[2024-12-29 13:52] LABS: ABSOLUTE IMMATURE GRANULOCYTES 0.01 x10^3/uL (0.0-0.031); BASOPHILS # 0.02 x10^3/uL (0.01-0.08); EOSINOPHIL % 0.7 % (0.7-5.8); EOSINOPHILS # 0.06 x10^3/uL (0.04-0.36); HEMATOCRIT 34.4 % (34.1-44.9); HEMOGLOBIN 11.9 g/dL (11.2-15.7); MCHC 34.6 g/dl (32.2-35.5); MEAN PLT VOLUME 9.2 fl (9.4-12.3); MONOCYTE # 0.48 x10^3/uL (0.24-0.86); MONOCYTE % 5.7 % (4.7-12.5); PLATELET COUNT 288 x10^3/uL (182-369); RDW 12.4 % (12.1-16.5)
[2024-12-29 14:03] LABS: BILIRUBIN,TOTAL 0.5 mg/dl (0.2-1); CREATININE 0.6 mg/dl (0.6-1.3); POTASSIUM 3.6 mmol/L (3.5-5.1); TOT PROT 6.5 g/dl (6.4-8.2)
[2024-12-29 16:27] LABS: HCV DIAGNOSTIC IN-HOUSE W/RFLX NON-REACTIVE (NONREACTIVE)
[2024-12-29 16:28] LABS: HIV INTERPRETATION NEGATIVE (NEGATIVE)
== END 2024-12-29 15:58 | disposition home or self-care (01) ==
LOC: FER 12:24
PROC: 3E033GC Introduction of Other Therapeutic Substance into Peripheral Vein, Percutaneous Approach (ICD-10-PCS; principal; 2024-12-29)
DX: O21.9 Vomiting of pregnancy, unspecified (principal); O26.899 Other specified pregnancy related conditions, unspecified trimester; R10.31 Right lower quadrant pain; Z3A.01 Less than 8 weeks gestation of pregnancy
CPT/HCPCS: 36415; 76817-TC; 80053; 81003; 83690; 84702; 85025; 86803; 86850; 86900; 86901; 87086; 87389; 96374; 99285-25